=== PATIENT | female | born 1945 | race Two or more races ===

== ENCOUNTER 2023-01-16 11:27 | Observation (INO) | payer OTHER ==
[~2023-01-16] VITALS: Ht 160 cm; Wt 97.4 kg
[~2023-01-16 11:27] MED LIST: GLIM2TAB33 PO; LISI20TA28 PO; METF-489 PO; SIMV-13 PO; WARF1TAB PO; [UNRECOGNIZED DRUG - CODE] IV; [UNRECOGNIZED DRUG - CODE] PO
[2023-01-16 12:05] LABS: Eosinophils # (auto) 0.3 10 ^3/uL (0-0.8); Hemoglobin 11.2 g/dL (12.2-16.2); Neutrophils # (auto) 4.6 10 ^3/uL (1.6-8.6); Nucleated Red Blood Cells % 0.1 %
[2023-01-16 12:09] LABS: Basophils # (auto) 0.1 10 ^3/uL (0-0.2); Basophils % (auto) 0.7 % (0.0-2.0); Hematocrit 34.5 % (36.0-46.0); Lymphocytes # (auto) 1.7 10 ^3/uL (0.4-5.4); Lymphocytes % (auto) 23.9 % (10.0-50.0); Mean Corpuscular Hemoglobin 25.5 pg (28.0-32.0); Mean Corpuscular Hgb Conc. 32.3 g/dL (32.0-36.0); Mean Corpuscular Volume 78.8 fL (80.0-100.0); Monocytes # (auto) 0.6 10 ^3/uL (0-1.3); Neutrophils % (auto) 63.4 % (37.0-80.0); Red Blood Cells 4.38 10^6/uL (4.0-5.20); Red Cell Distribution Width 18.1 % (11.8-14.3); White Blood Cell 7.2 10^3/uL (4.4-10.8)
[2023-01-16 12:23] LABS: Albumin 3.2 g/dL (3.4-5.0); Potassium 3.6 mmol/L (3.5-5.1)
[2023-01-16 12:26] LABS: BUN/Creatinine Ratio 19.4 (10.0-20.0); Bilirubin, Total 0.4 mg/dL (0.2-1.0); Total Protein 7.3 g/dL (6.4-8.2)
[2023-01-16 12:43] LABS: Urine Bacteria NONE SEEN /hpf (None Seen); Urine Blood Negative /uL (Negative); Urine Specific Gravity 1.015 (1.001-1.035); Urine WBC 8 /hpf (0 - 5)
[2023-01-16] MEDS ORDERED: NITROGLYCERIN 0.4 MG SL TAB SL ONE (13:00)
[2023-01-16] MEDS ORDERED: ONDANSETRON HCL 4 MG/2 ML VIAL IV PRN (17:15)
[2023-01-16] MEDS ORDERED: DEXTROSE (50%) 50ML SYRG IV PRN (17:15)
[2023-01-16] MEDS ORDERED: NITROGLYCERIN 0.4 MG SL TAB SL PRN (17:15)
[2023-01-16] MEDS ORDERED: ACETAMINOPHEN 325 MG TAB PO PRN (17:15)
[2023-01-16] MEDS ORDERED: MORPHINE SULFATE INJ 2 MG/ml SYRG IV PRN ×2 (17:15)
[2023-01-16] MEDS ORDERED: HYDROcodone-ACET 5/325MG TAB PO PRN (17:15)
[2023-01-16] MEDS: SODIUM CHLORIDE 0.9% 1,000 ML IV SCH (18:49)
[2023-01-16] MEDS ORDERED: InsuLIN REG 1unit/0.01ml Soln (100units/ml) SC SCH (22:00)
[2023-01-16 23:00] VITALS: BP 134/42
[2023-01-16] MEDS: ACCU-CHEK COMFORT CURVE STRIP VI SCH (23:39)
[2023-01-17] MEDS: SODIUM CHLORIDE 0.9% 1,000 ML IV SCH ×2 (01:35→09:55)
[2023-01-17] MEDS ORDERED: PANT1INJ3 IV (01:57)
[2023-01-17] MEDS ORDERED: LOSA-39 PO (01:57)
[2023-01-17] MEDS ORDERED: GABA100C9 PO (01:57)
[2023-01-17] MEDS ORDERED: NITR0.4S29 SL (01:57)
[2023-01-17] MEDS ORDERED: SITA100T7 PO (01:57)
[2023-01-17] MEDS ORDERED: HYDR25TA4 PO (01:57)
[2023-01-17] MEDS ORDERED: ROSU40TA PO (01:57)
[2023-01-17] MEDS ORDERED: METF-370 PO (01:57)
[2023-01-17] MEDS ORDERED: CITA-245 PO (01:57)
[2023-01-17] MEDS ORDERED: DILT60TA PO (01:57)
[2023-01-17 05:00] VITALS: BP 138/64
[2023-01-17] MEDS: ACCU-CHEK COMFORT CURVE STRIP VI SCH ×3 (06:23→17:00)
[2023-01-17] MEDS: InsuLIN REG 1unit/0.01ml Soln (100units/ml) SC SCH ×3 (06:23→17:00)
[2023-01-17 09:10] VITALS: BP 118/76
[2023-01-17] MEDS ORDERED: ENOXAPARIN SOD 40 MG/0.4 ML SYRINGE SC SCH (10:00)
[2023-01-17 13:00] VITALS: BP 96/42
[2023-01-17 17:26] VITALS: BP 124/85
[2023-01-17 17:27] VITALS: BP 124/55
== END 2023-01-17 18:25 | disposition home or self-care (01) ==
LOC: ER 11:27 → TELE 17:06 → TELE-CENTR 23:00
PROVIDERS: ADMIT Internal Medicine; ATTEND Internal Medicine
DX: R07.89 Other chest pain (principal); Z20.822 Contact with and (suspected) exposure to COVID-19; E11.9 Type 2 diabetes mellitus without complications; I10 Essential (primary) hypertension; E78.5 Hyperlipidemia, unspecified; I24.9 Acute ischemic heart disease, unspecified; E66.01 Morbid (severe) obesity due to excess calories; Z86.711 Personal history of pulmonary embolism; Z79.899 Other long term (current) drug therapy
CPT/HCPCS: 36415; 71045; 80053; 81001; 83880; 84484; 85025; 85379; 87426; 93005; 93306; 96360; 96361; 96372; 99285; G0378; J1650; J7030

== ENCOUNTER 2025-05-04 11:47 | Inpatient (IN) | payer OTHER ==
[~2025-05-04] VITALS: Ht 154.9 cm; Wt 91.3 kg
[~2025-05-04 11:47] MED LIST changes: +CITA-245 PO; +DILT60TA PO; +GABA-1308 PO; +HYDR25TA4 PO; -LISI20TA28 PO; +LISI20TA56 PO; +LOSA-535 PO; +METF-370 PO; +NITR0.4S29 SL; +PANT1INJ3 IV; +ROSU40TA81 PO; -SIMV-13 PO; +SIMV40TA18 PO; +SITA100T7 PO
--- NOTE | 2025-05-04 12:11 | ED.PDOC ---
SOB-HPI HPI Comments 79 y/o F, accompanied by daughter, with PMHx of DM, HLD, HTN, PE, DVT, and UTI's presents to the ED for CC of shortness of breath. Per daughter, patient has been experiencing shortness of breath with associated chest discomfort x3days. Daughter reports, patient was seen at [facility] for symptoms today (05/04/25) and was relayed to the ED for a further evaluation. Daughter comments, patient recently started Abx on Sunday (05/01/25) for Dx:UTI and the day prior (04/30/25) started Ozempic for her DM. Since starting new medications, patient has been experiencing weakness, fatigue, and loose bowels. Patient denies excessive thirst, frequent urination, dysuria, hematuria, nausea, or vomiting. No other symptoms or modifying factors present at this time. 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 Pertinent TREATMENT PLANT OPERATOR History Family History Family History: Unknown Social History Smoker: Non-Smoker Alcohol: Denies ETOH Use Drugs: Denies Drug Use Lives In: Home Constitutional: reports: fatigue, weakness; denies: chills, diaphoresis, fever, malaise, sweats, others EENTM: denies: blurred vision, double vision, ear bleeding, ear discharge, ear drainage, ear pain, ear ringing, eye pain, eye redness, hearing loss, mouth pain, mouth swelling, nasal discharge, nose bleeding, nose congestion, nose pain, photophobia, tearing, throat pain, throat swelling, voice changes, others Respiratory: reports: shortness of breath; denies: cough, hemoptysis, orthopnea, SOB at rest, SOB with excertion, stridor, wheezing, others Cardiovascular: denies: chest pain, dizzy spells, diaphoresis, Dyspnea on exertion, edema, irregular heart beat, left arm pain, lightheadedness, palpitations, PND, syncope, others Gastrointestinal: denies: abdomen distended, abdominal pain, blood streaked bowels, constipated, diarrhea, dysphagia, difficulty swallowing, hematemesis, melena, nausea, poor appetite, poor fluid intake, rectal bleeding, rectal pain, vomiting, others Genitourinary: denies: abnormal vagina bleeding, burning, dyspareunia, dysuria, flank pain, frequency, hematuria, incontinence, pain, , vagina discharge, urgency, others Neurological: denies: dizziness, fainting, headache, left sided numbness, left sided weakness, numbness, paresthesia, pre-existing deficit, right sided numbness, right sided weakness, seizure, speech problems, tingling, tremors, weakness, others Musculoskeletal: denies: back pain, gout, joint pain, joint swelling, muscle pain, muscle stiffness, neck pain, others Integumetry: denies: bruises, change in color, change in hair/nails, dryness, laceration, lesions, lumps, rash, wounds, others Allergic/Immunocompromised: denies: Difficulty Healing, Frequent Infections, Hives, Itching, others Hematologic/Lymphatic: denies: anemia, blood clots, easy bleeding, easy bruising, swollen glands, others Endocrine: denies: excessive hunger, excessive sweating, excessive thirst, excessive urination, flushing, intolerance to cold, intolerance to heat, unexplained weight gain, unexplained weight loss, others Psychiatric: denies: anxiety, bipolar disorder, depression, hopeless, panic disorder, schizophrenia, sleepless, suicidal, others All Other Systems: Reviewed and Negative Physical Exam General Appearance: No Apparent Distress, Normal HEENT: Normal ENT Inspection, Pharynx Normal Neck: Full Range of Motion, Non-Tender, Normal, Normal Inspection Respiratory: Chest Non-Tender, Lungs Clear, No Accessory Muscle Use, No Respiratory Distress, Normal Breath Sounds Cardiovascular: No Edema, No Murmur, No Gallop, Normal Peripheral Pulses, Regular Rate/Rhythm Breast Exam: Deferred Gastrointestinal: No Organomegaly, Non Tender, No Pulsatile Mass, Normal Bowel Sounds, Soft Genitalia: Deferred Pelvic: Deferred Rectal: Deferred Extremities: No calf tenderness, Normal capillary refill, Normal inspection, Normal range of motion, Non-tender, No pedal edema Musculoskeletal : Apperance: Normal Neurologic: Alert, schedule supervisor II-XII nml as Tested, No Motor Deficits, Normal Affect, Normal Mood, No Sensory Deficits Cerebellar Function: Normal Reflexes: Normal Skin: Dry, Normal Color, Warm Lymphatic: No Adenopathy Was a procedure done? Was a procedure done?: No Differential Dx Differential Diagnosis: Bronchitis, Pneumonia, Pulmonary Embolism, Sinusitis, Pharyngitis, URI X-Ray, Labs, Meds, VS Vital Signs Date Time Temp Pulse Resp B/P (MAP) Pulse Ox O2 Delivery O2 Flow Rate FiO2 05/04/25 12:45 91 05/04/25 12:00 97.0 98 0 138/70 (92) 96 97.0 Lab Test 05/04/25 15:39 05/04/25 13:56 05/04/25 12:43 Range/Units Troponin I High Sensitivity 11 11 11 </=34 ng/L White Blood Count 7.3 4.4-10.8 10^3/uL Red Blood Count 4.76 4.0-5.20 10^6/uL Hemoglobin 12.1 L 12.2-16.2 g/dL Hematocrit 37.1 36.0-46.0 % Mean Corpuscular Volume 78.0 L 80.0-100.0 fL Mean Corpuscular Hemoglobin 25.5 L 28.0-32.0 pg Mean Corpuscular Hemoglobin Concent 32.7 32.0-36.0 g/dL Red Cell Distribution Width 22.9 H 11.8-14.3 % Platelet Count 246 140-450 10^3/uL Mean Platelet Volume 8.4 6.9-10.8 fL Neutrophils (%) (Auto) 59.3 37.0-80.0 % Lymphocytes (%) (Auto) 26.8 10.0-50.0 % Monocytes (%) (Auto) 10.2 0.0-12.0 % Eosinophils (%) (Auto) 2.8 0.0-7.0 % Basophils (%) (Auto) 0.9 0.0-2.0 % Neutrophils # (Auto) 4.4 1.6-8.6 10 ^3/uL Lymphocytes # (Auto) 2.0 0.4-5.4 10 ^3/uL Monocytes # (Auto) 0.7 0-1.3 10 ^3/uL Eosinophils # (Auto) 0.2 0-0.8 10 ^3/uL Basophils # (Auto) 0.1 0-0.2 10 ^3/uL Nucleated Red Blood Cells 0.1 % Prothrombin Time 19.6 H 9.3-11.8 sec Prothrombin Time INR 1.98 H 0.9-1.15 Activated Partial Thromboplast Time 35.0 H 24.5-34.5 SEC Sodium Level 139 136-145 mmol/L Potassium Level 3.0 L 3.5-5.1 mmol/L Chloride Level 103 98-107 mmol/L Carbon Dioxide Level 25 20-31 mmol/L Anion Gap 11 5-15 Blood Urea Nitrogen 15 9-23 mg/dL Creatinine 0.99 0.550-1.02 mg/dL Glomerular Filtration Rate Calc 58 >90 mL/min BUN/Creatinine Ratio 15.2 10.0-20.0 Serum Glucose 161 H 74-106 mg/dL Calcium Level 10.4 8.7-10.4 mg/dL [place] [id number] Ph: [phone] DIAGNOSTIC IMAGING Diagnostic Imaging Report : [id number] Signed PATIENT: FABIOLA ELLIS ACCT: [id number] UNIT: [id number] : 1945 LOC: ER ROOM / BED: / AGE / SEX: 79 / F ADM STATUS: REG ER SERVICE 1229 ORDERING PHYSICIAN: NGA ADAMSON MD PROCEDURE(s): CXRP - CHEST PORTABLE REASON: chest pain ORDER NUMBER(s): [id number], ACCESSION NUMBER(s): [id number] INDICATION: chest pain TECHNIQUE: Frontal view of the chest. COMPARISON: XY CHEST PORTABLE on DOS: 01/16/23 FINDINGS: . The heart and mediastinal contours are grossly unremarkable. There is no evidence of pleural disease. Right lower lobe opacity. The bony structures of the chest are intact without fracture. IMPRESSION: 1. Right lower lobe opacity. ATED BY: BALTA ROSE MD DICTATED DATE/TIME: 05/04/25 1338 SIGNED BY: BALTA ROSE MD SIGNED DATE/TIME: 05/04/25 1338 CC: Time of 1ST Reevaluation: 12:50 Reevaluation 1ST: Unchanged Patient Education/Counseling: Diagnosis, Treatment Family Education/Counseling: No Family Present SEPSIS Sepsis Screen Physician Orders Chest Portable (05/04/25 12:29) Oxygen (05/04/25 ) Imaging Transfer Request (05/04/25 15:57) Code Status (05/04/25 18:23) Oxygen Per Hour (05/04/25 18:23) Vital Signs Date Time Temp Pulse Resp B/P (MAP) Pulse Ox O2 Delivery O2 Flow Rate FiO2 05/04/25 12:45 91 05/04/25 12:00 97.0 98 0 138/70 (92) 96 97.0 Laboratory Tests Test 05/04/25 12:43 White Blood Count 7.3 10^3/uL (4.4-10.8) Departure 1 Departure Time of Disposition: 19:28 (Patient presented with chest pain that was concerning for possible STEMI, ACS, PE, Pneumonia, Muscle Strain, COPD, Dissection. Data: 1. I ordered and reviewed the result of at least 3 labs including a CBC, BMP, and Troponin. 2. I independently interpreted the following tests: EKG which shows sinus arrhythmia and Chest X-ray which shows vascular congestion.Risk:This patient has a high risk of morbidity due to further diagnostic testing or treatment and may suffer from an acute cardiac or respiratory disorder. Workup reveals concern for ACS and patient should be admitted for further workup and possible expert consultation. ) Impression: Primary Impression: Acute chest pain Additional Impression: Generalized weakness Disposition: ADMITTED INPATIENT Admit to: Med Surg Condition: Serious Critical Care Note Critical Care Time?: Yes Critical care comment: Acute chest pain Authorized and Performed by: Nga Adamson MD Total critical care time: Approximately 43 minutes Due to a high probability of clinically significant, life threatening deterioration, the patient required my highest level of preparedness to intervene emergently and I personally spent this critical care time directly and personally managing the patient. This critical care time included obtaining a history; examining the patient; pulse oximetry; ordering and review of studies; arranging urgent treatment with development of a management plan; evaluation of patient's response to treatment; frequent reassessment; and, discussions with other providers. This critical care time was performed to assess and manage the high probability of imminent, life-threatening deterioration that could result in multi-organ failure. It was exclusive of separately billable procedures and treating other patients and teaching time. Please see my other sections and the rest of the note for further information on patient assessment and treatment. Stability Stability form required: No Heart Score Heart Score: Heart Score Response (Comments) Value History N/A 0 EKG N/A 0 Age N/A 0 Risk Factors N/A 0 Troponin N/A 0 Total 0 I personally scribed for NGA ADAMSON MD ([email or web address]) on 05/04/25 at 12:11. Electronically submitted by Kassy Eagle ([email or web address]). I personally scribed for NGA ADAMSON MD ([email or web address]) on 05/04/25 at 12:32. Electronically submitted by Kassy Eagle ([email or web address]). I personally scribed for NGA ADAMSON MD ([email or web address]) on 05/04/25 at 12:43. Electronically submitted by Kassy Eagle ([email or web address]). I personally scribed for NGA ADAMSON MD ([email or web address]) on 05/04/25 at 14:05. Electronically submitted by Kassy Eagle ([email or web address]). NGA ADAMSON MD May 04, 2025 12:11
[2025-05-04 13:11] LABS: Hemoglobin 12.1 g/dL (12.2-16.2); Mean Corpuscular Hemoglobin 25.5 pg (28.0-32.0)
[2025-05-04 13:16] LABS: Hematocrit 37.1 % (36.0-46.0); Mean Corpuscular Volume 78.0 fL (80.0-100.0); Nucleated Red Blood Cells % 0.1 %
[2025-05-04 13:23] LABS: Chloride 103 mmol/L (98-107); Sodium 139 mmol/L (136-145)
[2025-05-04 13:24] LABS: Anion Gap 11 (5-15); Calcium 10.4 mg/dL (8.7-10.4); Carbon Dioxide 25 mmol/L (20-31)
[2025-05-04 13:27] LABS: INR 1.98 (0.9-1.15); Partial Thromboplastin Time 35.0 SEC (24.5-34.5); Prothrombin Time 19.6 sec (9.3-11.8)
[2025-05-04 13:29] LABS: BUN/Creatinine Ratio 15.2 (10.0-20.0); Blood Urea Nitrogen 15 mg/dL (9-23); Glucose 161 mg/dL (74-106); Potassium 3.0 mmol/L (3.5-5.1)
--- NOTE | 2025-05-04 13:41 | DVH ---
INDICATION: chest pain TECHNIQUE: Frontal view of the chest. COMPARISON: XY CHEST PORTABLE on DOS: 01/16/23 FINDINGS: . The heart and mediastinal contours are grossly unremarkable. There is no evidence of pleural disea se. Right lower lobe opacity. The bony structures of the chest are intact without fracture. IMPRESSION: 1. Right lower lobe opacity.
[2025-05-04] MEDS: SODIUM CHLORIDE 0.9% 1,000 ML IV ONE (15:45)
[2025-05-04] MEDS: CEFEPIME 2GM/50ML NS 50 ML IV ONE (15:45)
[2025-05-04] MEDS: VANCOMYCIN 1GM/200ML PM 200 ML IV ONE (15:45)
[2025-05-04] MEDS ORDERED: HYDROcodone-ACET 5/325MG TAB PO PRN (18:30)
[2025-05-04] MEDS ORDERED: DEXTROSE (50%) 50ML SYRG IV PRN (18:30)
[2025-05-04] MEDS: POTASSIUM CHL 20 Meq TABLET PO ONE (18:30)
[2025-05-04] MEDS ORDERED: ONDANSETRON HCL 4 MG/2 ML VIAL IV PRN (18:30)
[2025-05-04] MEDS: SODIUM CHLORIDE 0.9% 1,000 ML IV SCH (18:30)
[2025-05-04] MEDS ORDERED: DOCUSATE SOD 100 MG CAP PO PRN (18:30)
[2025-05-04] MEDS ORDERED: ACETAMINOPHEN 325 MG TAB PO PRN (18:30)
[2025-05-04] MEDS ORDERED: NITROGLYCERIN 0.4 MG SL TAB SL PRN (19:45)
[2025-05-04] MEDS ORDERED: MORPHINE SULFATE INJ 2 MG/ml SYRG IV PRN (19:45)
--- NOTE | 2025-05-04 20:03 | DVHHP2 ---
History of Present Illness Reason for Visit: Acute respiratory distress History of Present Illness The patient is a 79-year-old female with multiple past medical history including diabetes mellitus, hypertension, and hyperlipidemia who presented to [facility] ED with complaint of shortness of breaths. Patient reports she has been experiencing shortness of breaths for the past 3 days, associated with chest discomfort, increased work of breathing, getting worse today that prompted this visit. As reported by daughter, patient recently started Abx on Sunday (05/01/25) for for UTI diagnosis and the day prior (04/30/25) started Ozempic for her diabetes mellitus. Patient was seen and evaluated in the ED, laboratory data shows WBC 7.3, platelets 246, sodium 139, potassium 3.0, BUN 15, creatinine 0.99, glucose 161, calcium 10.4, troponin 11, blood pressure 138/70, heart rate 92, temperature 97.0 F, O2 saturation 96% on oxygen. Chest x-ray revealing right lower lobe opacity. Please see medication orders section in the computer. On my assessment, patient denied chest pain, no headache, dizziness, no diaphoresis, currently on oxygen, no nausea, no vomiting, no fever, no chills. Patient was admitted for further evaluation and medical management. Past Medical History DM, High Lipids, HTN, PE, DVTs Past Surgical History Cholecystectomy, Family History Reviewed, noncontributory to the management of this case. Past Social History The patient lives at home, denies smoking, alcohol or illicit drugs abuse. Review of Systems Constitutional: Yes: Weakness, Other (Fatigue); No: Fever, Chills, Sweats, Malaise Eyes: No: Pain, Vision change, Conjunctivae inflammation, Eyelid inflammation, Other, Redness ENT: No: Ear pain, Ear discharge, Nose pain, Nose discharge, Nose congestion, Mouth pain, Mouth swelling, Throat pain, Throat swelling, Other Respiratory: Shortness of breath, Other (SOB at rest); No: Cough, Dry, SOB with excertion, Wheezing, Hemoptysis, Pleuritic Pain, Sputum, Wheezing Cardiovascular: No: Chest Pain, Palpitations, Orthopnea, Paroxysmal Noc. Dyspnea, Edema, Lt Headedness, Other Gastrointestinal: No: Nausea, Vomiting, Abdominal Pain, Diarrhea, Constipation, Melena, Hematochezia, Other Genitourinary: No Dysuria, No Frequency, No Incontinence, No Hematuria, No Retention, No Other Musculoskeletal: No: other, neck pain, shoulder pain, arm pain, back pain, hand pain, leg pain, foot pain Skin: No: Rash, Lesions, Jaundice, Bruising, Other Neurological: No: Weakness, Numbness, Incoordination, Change in speech, Confusion, Seizures, Other Allergies: Coded Allergies: NO KNOWN ALLERGIES (Unverified , 12/30/12) Medications Current Medications Medications Dose Ordered Sig/Blane Route Start Time Stop Time Status Last Admin Dose Admin Lisinopril 20 mg DAILY PO 05/05/25 10:00 Amlodipine Besylate 5 mg DAILY PO 05/05/25 10:00 Aspirin 81 mg DAILY PO 05/05/25 10:00 Atorvastatin Calcium 40 mg HS PO 05/04/25 22:00 Azithromycin 250 ml @ 125 mls/hr DAILY IV 05/05/25 10:00 Diagnostic Test (Pha) 1 strip ACHS 05/04/25 22:00 Insulin Human Regular HS SC 05/04/25 22:00 Insulin Human Regular AC SC 05/05/25 07:00 Dextrose 50 ml UD PRN IV 05/04/25 18:30 Sodium Chloride 1,000 ml @ 60 mls/hr [id number] IV 05/04/25 18:30 05/04/25 18:30 60 MLS/HR Acetaminophen/ Hydrocodone Bitart 1 tab Q4HP PRN PO 05/04/25 18:30 Ondansetron HCl 4 mg Q4HP PRN IV 05/04/25 18:30 Docusate Sodium 100 mg BIDPRN PRN PO 05/04/25 18:30 Acetaminophen 650 mg Q6HP PRN PO 05/04/25 18:30 Exam Vital Signs Vital Signs Date Time Temp Pulse Resp B/P (MAP) Pulse Ox O2 Delivery O2 Flow Rate FiO2 05/04/25 12:45 91 05/04/25 12:00 97.0 0 138/70 (92) 96 97.0 General Appearance: Alert, Oriented X3, Cooperative, No acute distress HEENT: Atraumatic, PERRLA, EOMI, Mucous membr. moist/pink Respiratory: Normal air movement Cardiovascular: Regular rate, Normal S1, Normal S2, No murmurs Abdominal: Normal bowel sounds, Soft, No tenderness, No hepatospenomegaly, No masses Extremities: No clubbing, No cyanosis, No edema, Normal pulses, No tenderness/swelling Skin: No rashes, No breakdown, No significant lesion Neuro: Normal speech, Normal tone, Sensation intact, Cranial nerves 3-12 NL, Reflexes 2+, Other (Generalized weakness) Psych/Mental Status: Mental status NL, Mood NL Labs/Xrays Labs Test 05/04/25 15:39 05/04/25 12:43 Range/Units Troponin I High Sensitivity 11 </=34 ng/L White Blood Count 7.3 4.4-10.8 10^3/uL Red Blood Count 4.76 4.0-5.20 10^6/uL Hemoglobin 12.1 L 12.2-16.2 g/dL Hematocrit 37.1 36.0-46.0 % Mean Corpuscular Volume 78.0 L 80.0-100.0 fL Mean Corpuscular Hemoglobin 25.5 L 28.0-32.0 pg Mean Corpuscular Hemoglobin Concent 32.7 32.0-36.0 g/dL Red Cell Distribution Width 22.9 H 11.8-14.3 % Platelet Count 246 140-450 10^3/uL Mean Platelet Volume 8.4 6.9-10.8 fL Neutrophils (%) (Auto) 59.3 37.0-80.0 % Lymphocytes (%) (Auto) 26.8 10.0-50.0 % Monocytes (%) (Auto) 10.2 0.0-12.0 % Eosinophils (%) (Auto) 2.8 0.0-7.0 % Basophils (%) (Auto) 0.9 0.0-2.0 % Neutrophils # (Auto) 4.4 1.6-8.6 10 ^3/uL Lymphocytes # (Auto) 2.0 0.4-5.4 10 ^3/uL Monocytes # (Auto) 0.7 0-1.3 10 ^3/uL Eosinophils # (Auto) 0.2 0-0.8 10 ^3/uL Basophils # (Auto) 0.1 0-0.2 10 ^3/uL Nucleated Red Blood Cells 0.1 % Prothrombin Time 19.6 H 9.3-11.8 sec Prothrombin Time INR 1.98 H 0.9-1.15 Activated Partial Thromboplast Time 35.0 H 24.5-34.5 SEC Sodium Level 139 136-145 mmol/L Potassium Level 3.0 L 3.5-5.1 mmol/L Chloride Level 103 98-107 mmol/L Carbon Dioxide Level 25 20-31 mmol/L Anion Gap 11 5-15 Blood Urea Nitrogen 15 9-23 mg/dL Creatinine 0.99 0.550-1.02 mg/dL Glomerular Filtration Rate Calc 58 >90 mL/min BUN/Creatinine Ratio 15.2 10.0-20.0 Serum Glucose 161 H 74-106 mg/dL Calcium Level 10.4 8.7-10.4 mg/dL PATIENT: FABIOLA ELLIS ACCT: [id number] UNIT: [id number] : 1945 LOC: ER ROOM / BED: / AGE / SEX: 79 / F ADM STATUS: REG ER SERVICE 1229 ORDERING PHYSICIAN: NGA ADAMSON MD PROCEDURE(s): CXRP - CHEST PORTABLE REASON: chest pain ORDER NUMBER(s): [id number], ACCESSION NUMBER(s): [id number] INDICATION: chest pain TECHNIQUE: Frontal view of the chest. COMPARISON: XY CHEST PORTABLE on DOS: 01/16/23 FINDINGS: The heart and mediastinal contours are grossly unremarkable. There is no evidence of pleural disease. Right lower lobe opacity. The bony structures of the chest are intact without fracture. IMPRESSION: 1. Right lower lobe opacity. Assessment/Plan Assessment/Plan Acute respiratory distress Hypokalemia Generalized weakness Diabetes mellitus with hyperglycemia Pneumonia, unspecified organism Plan 1. Admit to telemetry unit 2. Breathing treatment 3. Pain control management 4. IV antibiotic management 5. Management of fluids and electrolytes 6. Consultation for hospitalist 7. Diagnostic test chest x-ray 8. DVT prophylaxis-on SCDs 9. Repeat labs CBC, CMP in a.m. 10. Home medication reviewed and reconciled 11. Continue with current medical management 12. Treatment plan discussed with patient and RN. Patient verbalized understanding. Plan discussed with: Patient, Other (RN) My Orders Orders - MONSERRAT CHANEY DNP Procedure Category Date Status Time Consistent DIET 05/04/25 Transmitted Carb(Ccho)Diabetes Dinner Lisinopril Tablet PHA 05/05/25 In Process (Zestril Tablet) 10:00 Amlodipine Tablet PHA 05/05/25 In Process (Norvasc Tablet) 10:00 Aspirin Tablet PHA 05/05/25 In Process 10:00 Atorvastatin (Lipitor) PHA 05/04/25 In Process 22:00 Azithromycin 500mg/ PHA 05/05/25 In Process 250ml (Zithromax 50 10:00 Glucose Blood PHA 05/04/25 In Process (Accu-Chek Comfort 22:00 Insulin R (Human) PHA 05/04/25 In Process (Insulin R) 22:00 Insulin R (Human) PHA 05/05/25 In Process (Insulin R) 07:00 Dextrose 50% Syringe PHA 05/04/25 In Process 18:30 Allergies NIYAH 05/04/25 In Process 18:23 Code Status CODE 05/04/25 Transmitted 18:23 Sodium Chloride 0.9% PHA 05/04/25 In Process 18:30 Oxygen Per Hour RT 05/04/25 Transmitted 18:23 Hydrocodone-Acet PHA 05/04/25 In Process 5/325mg Tab ([place] 18:30 Ondansetron Hcl PHA 05/04/25 In Process (Zofran) 18:30 Docusate Sodium PHA 05/04/25 In Process Capsule (Colace 18:30 Complete Blood Count LAB 05/05/25 Verified 04:00 Comprehensive LAB 05/05/25 Verified Metabolic Panel 04:00 Condition: Serious NIYAH 05/04/25 In Process 18:23 Acetaminophen Tablet PHA 05/04/25 In Process (Tylenol Tablet) 18:30 Bedrest With Bathroom NIYAH 05/04/25 In Process Privileg 18:23 Sequential NIYAH 05/04/25 In Process Compression Device Admit ADMIT 05/04/25 Verified 19:43 Nitroglycerin PHA 05/04/25 Verified Sublingual (Ntrostat 19:45 Morphine Sulfate PHA 05/04/25 Verified Injection 19:45 Stat Ekg For Chest NIYAH 05/04/25 Verified Pain 19:43 Notify Of Changes 05/04/25 Verified From Base 19:43 Excel Specialist For [facility] 05/04/25 Verified 24 Hours 19:43 Emergency Dysrhythmia NIYAH 05/04/25 Verified Protocol 19:43 Rhythm Strips Once NIYAH 05/04/25 Verified Every Shift 19:43 Oxygen By Nasal RT 05/04/25 Verified Cannula 19:43 Problem List: (1) Acute respiratory distress (2) Hypokalemia (3) Diabetes mellitus with hyperglycemia (4) Pneumonia, unspecified organism Date of Service: May 04, 2025 Billing Provider: MONSERRAT CHANEY DNP Common Visit Codes: [id number] INP/OBS CARE (HIGH) MONSERRAT CHANEY DNP May 04, 2025 20:03
[2025-05-05 04:09] LABS: Hemoglobin 11.1 g/dL (12.2-16.2); Nucleated Red Blood Cells % 0.0 %
[2025-05-05 04:16] LABS: Alanine Aminotransferase 31 U/L (7-40); Albumin 4.3 g/dL (3.2-4.8); Alkaline Phosphatase 49 U/L (46-116); Anion Gap 10 (5-15); BUN/Creatinine Ratio 11.9 (10.0-20.0); Blood Urea Nitrogen 10 mg/dL (9-23); Calcium 8.9 mg/dL (8.7-10.4); Carbon Dioxide 24 mmol/L (20-31); Hematocrit 34.0 % (36.0-46.0); Mean Corpuscular Hemoglobin 25.6 pg (28.0-32.0); Mean Corpuscular Volume 78.4 fL (80.0-100.0); Sodium 142 mmol/L (136-145); Total Protein 6.4 g/dL (5.7-8.2)
[2025-05-05 04:17] LABS: Bilirubin, Total 0.5 mg/dL (0.2-1.0)
[2025-05-05 04:22] LABS: Chloride 108 mmol/L (98-107); Glucose 152 mg/dL (74-106); Potassium 3.3 mmol/L (3.5-5.1)
[2025-05-05 04:56] VITALS: BP 155/80; PULSE 88; RESP 14; TEMP 98.3; O2SAT 96
[2025-05-05] MEDS: ATORVASTATIN 20 MG TAB PO SCH (05:55)
[2025-05-05] MEDS: ACCU-CHEK COMFORT CURVE STRIP VI SCH (05:56)
[2025-05-05] MEDS: InsuLIN REG 1unit/0.01ml Soln (100units/ml) SC SCH (05:56)
[2025-05-05] MEDS ORDERED: InsuLIN REG 1unit/0.01ml Soln (100units/ml) SC SCH (07:00)
[2025-05-05] MEDS ORDERED: LISINOPRIL 20 MG TAB PO SCH (10:00)
[2025-05-05] MEDS ORDERED: AZITHROMYCIN 500MG/ 250ML 250 ML IV SCH (10:00)
--- NOTE | 2025-05-05 10:02 | ECG ---
[facility] Test Date: 2025-05-04 Test Time: 12:45:48 Pat Name: FABIOLA ELLIS Department: ER Room: [address] [place] [address] Gender: F Resident Hall Director: KINGS : 1945 Requested By: NGA ADAMSON Order Number: [id number] Reading MD: Mohan Peralta Measurements Intervals Morton Rate: 91 P: 39 OR: 121 QRS: 10 QRSD: 86 T: 222 QT: 326 QTc: 402 Interpretive Statements Sinus rhythm Low voltage, precordial leads LVH with secondary repolarization abnormality Baseline wander in lead(s) V4,V6 Electronically Signed On 05-07-2025 18:57:46 PDT by Mohan Peralta Please click the below link to view image of tracing.
== END 2025-05-05 06:23 | disposition left against medical advice (07) | DRG 179 ==
LOC: ER 11:47 → OVERFLOW 19:43
PROVIDERS: ADMIT Nurse Practitioner Family; ATTEND Nurse Practitioner Family
DX: J15.69 Pneumonia due to other Gram-negative bacteria (principal); E87.6 Hypokalemia; J15.9 Unspecified bacterial pneumonia; E11.65 Type 2 diabetes mellitus with hyperglycemia; Z53.29 Procedure and treatment not carried out because of patient's decision for other reasons; E78.5 Hyperlipidemia, unspecified; I10 Essential (primary) hypertension; Z90.49 Acquired absence of other specified parts of digestive tract; Z98.891 History of uterine scar from previous surgery; Z79.899 Other long term (current) drug therapy; R06.03 Acute respiratory distress
CPT/HCPCS: 36415; 71045; 80048; 80053; 84484; 85025; 85610; 85730; 93005; 96365; G0378; J0692